=== PATIENT | female | born 1950 | race Caucasian/White ===

== ENCOUNTER 2021-01-07 14:54 | Emergency (ER) | payer MEDICARE, OTHER ==
[~2021-01-07] VITALS: Ht 162.6 cm; Wt 97.3 kg
[2021-01-07 15:06] VITALS: BP 146/61; TEMP 98.6
[2021-01-07] MEDS ORDERED: XARELTO10 MG PO (15:10)
[2021-01-07 17:03] VITALS: PULSE 80
== END 2021-01-07 17:07 | disposition home or self-care (01) ==
LOC: COL.ER 14:54
DX: S09.90XA Unspecified injury of head, initial encounter (principal); S01.01XA Laceration without foreign body of scalp, initial encounter; Z86.711 Personal history of pulmonary embolism; Z23 Encounter for immunization; Z79.01 Long term (current) use of anticoagulants; W22.8XXA Striking against or struck by other objects, initial encounter; Y93.01 Activity, walking, marching and hiking

== ENCOUNTER → 2021-01-13 | Outpatient (CLI) | payer MEDICARE, OTHER ==
[~2021-01-13] MED LIST: XARELTO10 MG PO
[2021-01-13 11:49] VITALS: BP 139/81; PULSE 80; TEMP 98
== END ==
LOC: COL.ER 11:35
DX: Z48.02 Encounter for removal of sutures (principal)

== ENCOUNTER → 2021-07-20 | Outpatient (CLI) | payer MEDICARE, OTHER | LOC: MC.RAD 14:39 | DX: Z12.31 Encounter for screening mammogram for malignant neoplasm of breast (principal) ==